=== PATIENT | male | born 1950 | race Caucasian/White ===

== ENCOUNTER 2019-11-20 11:46 | Emergency (ER) | payer MEDICARE ==
[~2019-11-20] VITALS: Ht 170.2 cm; Wt 60.2 kg
--- NOTE | 2019-11-20 12:12 | NUR ---
pt in with C/O shortness of breath for a few days. pt C/O intermittent dizziness assoicated with shortness of breath. pt connected to monitors. Changed in hospital gown. Given call light. pt perfers to sit up, states easier to breath.
[2019-11-20] MEDS ORDERED: POTA10CA PO (12:21)
[2019-11-20] MEDS ORDERED: ATOR40TA78 PO (12:21)
[2019-11-20] MEDS ORDERED: UBID100C24 PO (12:21)
[2019-11-20] MEDS ORDERED: METO-93 PO (12:21)
[2019-11-20] MEDS ORDERED: SACU1TAB PO (12:21)
[2019-11-20] MEDS ORDERED: FURO20TA3 PO (12:21)
[2019-11-20] MEDS ORDERED: CLOP75TA PO (12:21)
[2019-11-20 12:43] LABS: BASOPHILS # (AUTO) 0.02 x10^3/uL (0-0.1); BASOPHILS % (AUTO) 0 % (0-1); EOSINOPHILS # (AUTO) 0.09 x10^3/uL (0-0.4); EOSINOPHILS % (AUTO) 2 % (1-7); LYMPHOCYTES # (AUTO) 1.27 x10^3/uL (1-3.4); LYMPHOCYTES % (AUTO) 23 % (22-44); MD NO; MEAN CORPUSCULAR HEMOGLOBIN 31.4 pg (27.5-34.5); MEAN CORPUSCULAR HGB CONC 33.5 g/dL (33.2-36.2); MEAN CORPUSCULAR VOLUME 93.7 fL (81-97); MEAN PLATELET VOLUME 8.2 fL (7.4-10.4); MONOCYTES # (AUTO) 0.69 x10^3/uL (0.2-0.8); MONOCYTES % (AUTO) 13 % (2-9); NEUTROPHILS # (AUTO) 3.44 x10^3/uL (1.8-6.8); NEUTROPHILS % (AUTO) 63 % (42-75); PLATELET COUNT 204 x10^3/uL (130-400); RED BLOOD COUNT 5.44 x10^6/uL (4.38-5.82); RED CELL DISTRIBUTION WIDTH 13.7 % (9.4-14.8)
[2019-11-20 12:56] LABS: ALBUMIN 3.5 g/dL (3.4-5.0); ANION GAP 7 mmol/L (5-15); CALCIUM 8.9 mg/dL (8.5-10.1); CHLORIDE 107 mmol/L (98-107); CREATININE 1.05 mg/dL (0.7-1.3)
[2019-11-20 12:59] LABS: TROPONIN I 0.023 ng/mL (0.000-0.045)
--- NOTE | 2019-11-20 14:57 | NUR ---
MD at bedside discussing POC and room air ambulation results
[2019-11-20] MEDS ORDERED: BENZONATATE 100 MG CAPSULE PO ONE (15:00)
[2019-11-20] MEDS ORDERED: BENZONATATE 100 MG CAPSULE ONE (15:08)
[2019-11-20 15:12] VITALS: BP 143/96
--- NOTE | 2019-11-20 15:32 | NUR ---
Patient/Caregiver given discharge instructions and they have confirmed that they understand the instructions. Patient ambulatory with steady gait.
== END 2019-11-20 15:33 | disposition home or self-care (01) ==
LOC: ED 12:37
DX: R06.00 Dyspnea, unspecified (principal); B34.9 Viral infection, unspecified; R42 Dizziness and giddiness; I25.2 Old myocardial infarction
CPT/HCPCS: 36415; 71045; 80048; 82040; 84484; 85025; 93005; 99284

== ENCOUNTER 2020-09-08 08:23 | Observation (INO) | payer MEDICARE ==
[~2020-09-08] VITALS: Ht 175.3 cm; Wt 60.3 kg
[~2020-09-08 08:23] MED LIST: ATOR40TA78 PO; CLOP75TA PO; FURO20TA3 PO; METO-93 PO; POTA10CA PO; SACU1TAB PO; UBID100C24 PO
--- NOTE | 2020-09-08 09:18 | NUR ---
pt arrived in [facility], [facility], "dizzy for the last 4 days", blind in left eye,
[2020-09-08 09:47] LABS: BASOPHILS % (AUTO) 1 % (0-1); EOSINOPHILS % (AUTO) 4 % (1-7); LYMPHOCYTES % (AUTO) 38 % (22-44); MONOCYTES % (AUTO) 9 % (2-9); NEUTROPHILS % (AUTO) 49 % (42-75); PLATELET COUNT 268 x10^3/uL (130-400); RED BLOOD COUNT 5.04 x10^6/uL (4.38-5.82); RED CELL DISTRIBUTION WIDTH 13.3 % (9.4-14.8)
[2020-09-08 09:57] LABS: ALANINE AMINOTRANSFERASE 20 U/L (12-78); ALBUMIN 3.3 g/dL (3.4-5.0); ANION GAP 5 mmol/L (5-15); CALCIUM 8.9 mg/dL (8.5-10.1); CHLORIDE 111 mmol/L (98-107); CREATININE 1.14 mg/dL (0.7-1.3)
[2020-09-08 09:58] LABS: ALKALINE PHOSPHATASE 107 U/L (45-117); BILIRUBIN,TOTAL 0.2 mg/dL (0.2-1.0); TOTAL PROTEIN 7.1 g/dL (6.4-8.2)
--- NOTE | 2020-09-08 10:00 | NUR ---
PT IN BED NO CHANGE, STATES STILL DIZZY, HR IS 50.
[2020-09-08 10:55] LABS: MD SCAN
--- NOTE | 2020-09-08 11:00 | NUR ---
PT IN BED HR DOWN TO 30S, NOTIFIED ,
--- NOTE | 2020-09-08 11:28 | NUR ---
PRECEPTOR NOTE: DISCUSSED WITH MD REGARDING LOW HR, ORDERED EKG, DISCUSSED THAT PT IS ASYMPTOMATIC, NEED TO WALK WITH HR
--- NOTE | 2020-09-08 11:34 | NUR ---
PT STATES INCREASED DIZZNESS. WHEN WALKING. HR IN 40S UP TO 60.
--- NOTE | 2020-09-08 11:49 | NUR ---
PRECEPTOR NOTE: HR TO 30S, PRINTED TREND, GAVE TO MD.
--- NOTE | 2020-09-08 11:56 | NUR ---
HEAD TRANSFER CLERK CARDIOLOGY CALLED @ 1150 Addendum: 09/08/20 at 1207 by MARITO Amendment undone in EDM - 09/08/20 at 1208 by MARITO FAXED FOR MED RECORDS.
--- NOTE | 2020-09-08 12:11 | NUR ---
authorization manager cardiology called back @ [phone]
--- NOTE | 2020-09-08 12:13 | NUR ---
PRECEPTOR: PT WILL BE ADMITTED, CONFUSED ABOUT WHICH MEDICATION HE TAKES.
--- NOTE | 2020-09-08 12:50 | NUR ---
PRECEPTOR: MEAL PROVIDED, PT DENIES ANY NEEDS AT THIS TIME. NO PAIN
--- NOTE | 2020-09-08 13:45 | NUR ---
PRECEPTOR NOTE: PT ATE 75% MEAL, HR AT TIMES IN 30S FOR 5 SECOND. PT VERBALIZED NO NEEDS AT THIS TIME. AWAITING BED PLACEMENT IN HOSPITAL
[2020-09-08] MEDS ORDERED: ONDANSETRON ODT 4 MG PO PRN (17:00)
[2020-09-08] MEDS ORDERED: ONDANSETRON 2MG/ML, 2ML IVPush PRN (17:00)
[2020-09-08 17:17] VITALS: BP 144/78
[2020-09-08] MEDS: ENOXAPARIN 40 MG/0.4 ML SQ SCH (18:27)
[2020-09-08 19:37] LABS: TROPONIN I < 0.015 ng/mL (0.000-0.045)
[2020-09-08] MEDS: SACUBITRIL/VALSARTAN 24MG-26MG TAB PO SCH (20:38)
[2020-09-08] MEDS: ATORVASTATIN 40 MG TABLET PO SCH (20:38)
[2020-09-08 21:28] VITALS: BP 142/88
[2020-09-08 21:32] VITALS: BP 155/94
[2020-09-08 21:37] VITALS: BP 173/92
[2020-09-09] VITALS (10 sets, daily range): BP systolic 117–174; BP diastolic 72–103
[2020-09-09 02:06] LABS: TROPONIN I < 0.015 ng/mL (0.000-0.045)
[2020-09-09 05:13] LABS: BASOPHILS % (AUTO) 1 % (0-1); EOSINOPHILS % (AUTO) 2 % (1-7); LYMPHOCYTES % (AUTO) 28 % (22-44); MEAN CORPUSCULAR HEMOGLOBIN 31.9 pg (27.5-34.5); MEAN CORPUSCULAR HGB CONC 34.3 g/dL (33.2-36.2); MEAN PLATELET VOLUME 8.6 fL (7.4-10.4); MONOCYTES % (AUTO) 8 % (2-9); NEUTROPHILS % (AUTO) 60 % (42-75); PLATELET COUNT 261 x10^3/uL (130-400); RED BLOOD COUNT 5.04 x10^6/uL (4.38-5.82); RED CELL DISTRIBUTION WIDTH 13.6 % (9.4-14.8)
[2020-09-09 05:19] LABS: ALBUMIN 3.4 g/dL (3.4-5.0); ANION GAP 10 mmol/L (5-15); CALCIUM 8.7 mg/dL (8.5-10.1); CHLORIDE 106 mmol/L (98-107)
[2020-09-09 05:27] LABS: ALANINE AMINOTRANSFERASE 18 U/L (12-78); ALKALINE PHOSPHATASE 89 U/L (45-117); BILIRUBIN,TOTAL 0.5 mg/dL (0.2-1.0); CHOL/HDL RATIO 5.8; CHOLESTEROL, TOTAL 295 mg/dL (140-239); CREATININE 1.04 mg/dL (0.7-1.3); HDL CHOL % 17 % (26-37); HDL CHOLESTEROL (DIRECT) 51 mg/dL (40-60); LDL CHOLESTEROL,CALCULATED 198 mg/dL (54-169); LDL/HDL RATIO 3.9 (0.5-3.0); TRIGLYCERIDES 232 mg/dL (50-200); VLDL CHOLESTEROL 46 mg/dL (0-25)
[2020-09-09 06:02] LABS: MD SCAN
[2020-09-09] MEDS: SACUBITRIL/VALSARTAN 24MG-26MG TAB PO SCH ×2 (12:26→23:41)
[2020-09-09] MEDS: FUROSEMIDE 20 MG TABLET PO SCH (12:26)
[2020-09-09] MEDS: CLOPIDOGREL 75 MG TABLET PO SCH (12:26)
[2020-09-09] MEDS: POTASSIUM CHLORIDE 10 MEQ TABLET.ER PO SCH (12:26)
[2020-09-09] MEDS: ENOXAPARIN 40 MG/0.4 ML SQ SCH (17:20)
[2020-09-09] MEDS: ATORVASTATIN 40 MG TABLET PO SCH (23:42)
[2020-09-10 01:20] VITALS: BP 131/81
[2020-09-10 05:40] LABS: BASOPHILS % (AUTO) 1 % (0-1); EOSINOPHILS % (AUTO) 2 % (1-7); LYMPHOCYTES % (AUTO) 28 % (22-44); MEAN CORPUSCULAR HGB CONC 33.8 g/dL (33.2-36.2); MEAN PLATELET VOLUME 8.2 fL (7.4-10.4); MONOCYTES % (AUTO) 9 % (2-9); NEUTROPHILS % (AUTO) 61 % (42-75); PLATELET COUNT 282 x10^3/uL (130-400); RED BLOOD COUNT 5.24 x10^6/uL (4.38-5.82); RED CELL DISTRIBUTION WIDTH 13.4 % (9.4-14.8)
[2020-09-10 05:48] LABS: ALANINE AMINOTRANSFERASE 20 U/L (12-78); ALBUMIN 3.5 g/dL (3.4-5.0); ANION GAP 5 mmol/L (5-15); CALCIUM 8.9 mg/dL (8.5-10.1); CHLORIDE 107 mmol/L (98-107); CREATININE 1.14 mg/dL (0.7-1.3)
[2020-09-10 05:50] LABS: ALKALINE PHOSPHATASE 92 U/L (45-117); BILIRUBIN,TOTAL 0.7 mg/dL (0.2-1.0); TOTAL PROTEIN 7.1 g/dL (6.4-8.2)
[2020-09-10 06:11] LABS: MD NO
[2020-09-10 07:09] VITALS: BP 146/81
[2020-09-10] MEDS: FUROSEMIDE 20 MG TABLET PO SCH (11:04)
[2020-09-10] MEDS: POTASSIUM CHLORIDE 10 MEQ TABLET.ER PO SCH (11:04)
[2020-09-10] MEDS: CLOPIDOGREL 75 MG TABLET PO SCH (11:04)
[2020-09-10] MEDS: SACUBITRIL/VALSARTAN 24MG-26MG TAB PO SCH (11:04)
== END 2020-09-10 13:20 | disposition home or self-care (01) ==
LOC: ED 09:53 → INTOOBSV 12:37 → EDIP 12:37 → 5SO 17:00 → DCLOUNGE 09-10 13:01
PROVIDERS: ADMIT Family Medicine; ATTEND Family Medicine
DX: I49.3 Ventricular premature depolarization (principal); I25.5 Ischemic cardiomyopathy; I73.9 Peripheral vascular disease, unspecified; I25.10 Atherosclerotic heart disease of native coronary artery without angina pectoris; I10 Essential (primary) hypertension; R55 Syncope and collapse; R42 Dizziness and giddiness; E78.5 Hyperlipidemia, unspecified; E03.9 Hypothyroidism, unspecified; I25.2 Old myocardial infarction; H54.62 Unqualified visual loss, left eye, normal vision right eye; I37.1 Nonrheumatic pulmonary valve insufficiency; I70.0 Atherosclerosis of aorta; Z87.891 Personal history of nicotine dependence; Z79.899 Other long term (current) drug therapy; Z53.20 Procedure and treatment not carried out because of patient's decision for unspecified reasons; Z95.1 Presence of aortocoronary bypass graft
CPT/HCPCS: 36415; 70450; 80053; 80061; 83735; 84439; 84443; 84484; 85025; 93005; 93306; 96372; 99285; G0378; J1650

== ENCOUNTER 2020-10-21 22:40 | Emergency (ER) | payer MEDICARE ==
[~2020-10-21] VITALS: Ht 177.8 cm; Wt 63.1 kg
[2020-10-21 22:48] VITALS: BP 126/72
[2020-10-21] MEDS ORDERED: DOCUSATE 100 MG CAPSULE ONE (23:08)
[2020-10-22] MEDS ORDERED: DOCUSATE 100 MG CAPSULE PO SCH (09:00)
== END 2020-10-22 00:39 | disposition home or self-care (01) ==
LOC: ED 10-22 00:05
DX: H61.23 Impacted cerumen, bilateral (principal); I10 Essential (primary) hypertension; I25.2 Old myocardial infarction
CPT/HCPCS: 65210; 69210; 93005; 99283; 99284

== ENCOUNTER 2021-01-15 08:20 | Emergency (ER) | payer MEDICARE ==
[~2021-01-15] VITALS: Ht 175.3 cm; Wt 64.1 kg
--- NOTE | 2021-01-15 08:45 | NUR ---
NICHOLAS ARREDONDO AT BEDSIDE FOR EVALUATION
--- NOTE | 2021-01-15 08:53 | NUR ---
PT W/ C/O OF PRODUCTIVE COUGH, SOB SINCE EARLY THIS AM. PT OBSERVED TO BE HAVING FREQUENT DRY BARKING COUGH BY THIS RN. PT ATTACHED TO ALL [facility] TO BE IN AFIB. PT GIVEN MEDICATION LIST TO THIS RN. PT ON CLOPIDOGEL AND METROPOLOL. PT STATES HE DOES HAVE COPD. DENIES CP AND FEVER.
[2021-01-15 09:20] LABS: BASOPHILS % (AUTO) 0 % (0-1); EOSINOPHILS % (AUTO) 0 % (1-7); LYMPHOCYTES % (AUTO) 9 % (22-44); MEAN CORPUSCULAR HEMOGLOBIN 31.5 pg (27.5-34.5); MEAN CORPUSCULAR HGB CONC 33.6 g/dL (33.2-36.2); MEAN PLATELET VOLUME 7.8 fL (7.4-10.4); MONOCYTES % (AUTO) 8 % (2-9); NEUTROPHILS % (AUTO) 82 % (42-75); PLATELET COUNT 320 x10^3/uL (130-400); RED BLOOD COUNT 4.87 x10^6/uL (4.38-5.82); RED CELL DISTRIBUTION WIDTH 14.4 % (9.4-14.8)
[2021-01-15 09:24] LABS: ALANINE AMINOTRANSFERASE 12 U/L (12-78); ALBUMIN 3.7 g/dL (3.4-5.0); ANION GAP 10 mmol/L (5-15); CALCIUM 9.3 mg/dL (8.5-10.1); CHLORIDE 107 mmol/L (98-107); CREATININE 1.22 mg/dL (0.7-1.3)
[2021-01-15 09:29] LABS: ALKALINE PHOSPHATASE 88 U/L (45-117); BILIRUBIN,TOTAL 0.5 mg/dL (0.2-1.0); TOTAL PROTEIN 7.7 g/dL (6.4-8.2); TROPONIN I < 0.015 ng/mL (0.000-0.045)
[2021-01-15 09:34] LABS: RAPID INFLUENZA A Negative (Negative); RAPID INFLUENZA B Negative (Negative)
[2021-01-15 09:51] LABS: MD SCAN
--- NOTE | 2021-01-15 09:51 | NUR ---
PT SITTING UP IN BED. REBECA. TOD.
[2021-01-15] MEDS ORDERED: ALBUTEROL SULFATE 2.5 MG/3 ML ONE (10:15)
[2021-01-15] MEDS ORDERED: ALBUTEROL/IPRATROPIUM 2.5MG/0.5MG, 3 ML ONE (10:15)
[2021-01-15] MEDS ORDERED: ALBUTEROL SULFATE 2.5MG/0.5ML NPPB ONE (10:30)
[2021-01-15] MEDS ORDERED: ALBUTEROL/IPRATROPIUM 2.5MG/0.5MG, 3 ML NEB ONE (10:30)
--- NOTE | 2021-01-15 10:30 | NUR ---
pt sitting up in bed with breathing treatment. vss, [place].
--- NOTE | 2021-01-15 10:52 | NUR ---
pt states he feels a lot better after breathing treatment. he "no longer has to gasp for air"
[2021-01-15 11:40] VITALS: BP 106/58
--- NOTE | 2021-01-15 12:04 | NUR ---
Patient/Caregiver given discharge instructions and they have confirmed that they understand the instructions. Patient ambulatory with steady gait.
== END 2021-01-15 12:05 | disposition home or self-care (01) ==
LOC: ED 08:40
DX: J20.8 Acute bronchitis due to other specified organisms (principal); Z20.822 Contact with and (suspected) exposure to COVID-19; B97.89 Other viral agents as the cause of diseases classified elsewhere; D72.829 Elevated white blood cell count, unspecified; R07.89 Other chest pain; R06.00 Dyspnea, unspecified; R05 Cough; R00.2 Palpitations; I10 Essential (primary) hypertension; I25.2 Old myocardial infarction; Z87.891 Personal history of nicotine dependence
CPT/HCPCS: 36415; 71045; 80053; 83735; 83880; 84484; 85025; 85379; 87400; 93005; 94640; 99285; U0003

== ENCOUNTER 2021-06-29 08:10 | Emergency (ER) | payer MEDICARE ==
[~2021-06-29] VITALS: Ht 175.3 cm; Wt 63.5 kg
[2021-06-29 08:15] VITALS: BP 151/81
--- NOTE | 2021-06-29 08:56 | NUR ---
Pt is blind in Left eye
[2021-06-29] MEDS ORDERED: PROPARACAINE OPHTH 0.5%, 15ML ONE (09:37)
[2021-06-29] MEDS ORDERED: FLUORESCEIN OPHTHALMIC 1 MG STRIP ONE (09:37)
[2021-06-29] MEDS ORDERED: FLUORESCEIN OPHTHALMIC 1 MG STRIP EACHEYE ONE (10:00)
[2021-06-29] MEDS ORDERED: PROPARACAINE OPHTH 0.5%, 15ML EACHEYE ONE (10:00)
--- NOTE | 2021-06-29 10:00 | NUR ---
REPORT FROM ELPIDIO KELLER. PT RESTING IN BED, AWAITING ERMD OPTHO CONSULT. CONT TO MONITOR.
[2021-06-29] MEDS ORDERED: PROMETHAZINE/COD. 10MG/6.25MG/5 ML ORAL SOL PO ONE (11:00)
--- NOTE | 2021-06-29 11:23 | NUR ---
Patient given discharge instructions and they have confirmed that they understand the instructions. Patient ambulatory with steady gait.
--- NOTE | 2021-06-29 11:57 | NUR ---
PT LEFT ER, HAS D/C PAPERWORK GIVEN BY ELPIDIO KELLER.
== END 2021-06-29 12:02 | disposition home or self-care (01) ==
LOC: ED 10:10
DX: H10.022 Other mucopurulent conjunctivitis, left eye (principal); R05 Cough; I10 Essential (primary) hypertension; I25.2 Old myocardial infarction; Z87.891 Personal history of nicotine dependence
CPT/HCPCS: 71046; 99283